=== PATIENT | female | born 2000 | race Caucasian/White ===

== ENCOUNTER 2022-02-08 18:24 | Emergency (ER) | payer MEDICAID ==
[~2022-02-08] VITALS: Ht 170.2 cm; Wt 77.1 kg
[2022-02-08 19:05] VITALS: BP_SYST 107
--- NOTE | 2022-02-08 19:52 | NUR ---
Patient to ER bed H1 to gown for evaluation. Side rails up. Report given to ANNABEL KIRBY.
--- NOTE | 2022-02-08 19:53 | NUR ---
Patient complaining of bilateral flank pain worsening x 2 days. Patient reports has bilateral flank pain for 1 year intermittently. denies any /nausea/vomiting or diarrhea.
--- NOTE | 2022-02-08 19:59 | NUR ---
ER at bedside examining patient.
[2022-02-08] MEDS ORDERED: NACL 0.9% 1,000 ML IV ONE (20:00)
--- NOTE | 2022-02-08 20:08 | NUR ---
patient off unit to ct scan
--- NOTE | 2022-02-08 20:12 | NUR ---
patient returned from ct scan in stable condition
--- NOTE | 2022-02-08 20:15 | NUR ---
# 20 gauge angiocath placed to LAC. Use of asceptic technique. Opsite placed over site. Blood return noted. Flushed with 10 cc of normal saline. No evidence of infiltration noted. Patient tolerated well.
[2022-02-08 20:19] LABS: BILIRUBIN,URINE NEGATIVE (NEGATIVE); BLOOD, URINE NEGATIVE (NEGATIVE); CLARITY/URINE CLEAR (CLEAR); COLOR,URINE YELLOW (YELLOW); GLUCOSE,URINE NEGATIVE (NEGATIVE); KETONES,URINE NEGATIVE (NEGATIVE); LEUKOCYTE ESTERASE ,URINE NEGATIVE (NEGATIVE); NITRITE, URINE NEGATIVE (NEGATIVE); PROTEIN URINE NEGATIVE (NEGATIVE); UROBILINOGEN,URINE 0.2 (0.2-1.0)
[2022-02-08] MEDS ORDERED: ONDANSETRON HCL 4 MG/2 ML VIAL IVP ONE (20:45)
[2022-02-08] MEDS ORDERED: ACETAMINOPHEN 500 MG TABLET PO ONE (20:45)
[2022-02-08 20:48] LABS: HEMOGLOBIN 13.6 g/dL (12.0-16.0); MEAN CORPUSCULAR VOLUME 90 fL (79.0-98.0); WHITE BLOOD COUNT (AUTO) 6.2 K/uL (4.5-11.0)
[2022-02-08 20:53] LABS: BASOPHILS % (AUTO) 0.5 % (0.0-2.0); EOSINOPHILS # (AUTO) 0.1 K/uL (0.0-0.4); EOSINOPHILS % (AUTO) 1.2 % (0.0-4.0); HEMATOCRIT 39.6 % (36-48); LYMPHOCYTES # (AUTO) 2.6 K/uL (1.0-5.5); LYMPHOCYTES % (AUTO) 41.5 % (20.5-51.5); MEAN CORPUSCULAR HEMOGLOBIN 31 pg (27-31); MEAN CORPUSCULAR HGB CONC 34 % (32-36); MONOCYTES # (AUTO) 0.6 K/uL (0.0-1.0); MONOCYTES % (AUTO) 10.4 % (1.7-9.3); NEUTROPHILS # (AUTO) 2.9 K/uL (1.8-7.7); NEUTROPHILS % (AUTO) 46.4 % (40.0-70.0); PLATELET COUNT (AUTO) 232 K/uL (130-430); RED CELL DISTRIBUTION WIDTH 13.4 % (9.0-15.0)
[2022-02-08 20:58] LABS: CALCIUM 9.2 mg/dL (8.4-11.0); CREATININE 0.93 mg/dL (0.55-1.30)
[2022-02-08 21:04] LABS: ALBUMIN 3.9 g/dL (3.4-4.8); TOTAL BILIRUBIN 0.2 mg/dL (0.0-1.0)
--- NOTE | 2022-02-08 21:49 | NUR ---
md at bedside discussing results
[2022-02-08 21:54] VITALS: BP_SYST 118
--- NOTE | 2022-02-08 21:54 | NUR ---
Patient given written and verbal discharge instructions and verbalizes understanding. ER MD discussed with patient the results and treatment provided. Patient in stable condition. ID arm band removed. IV catheter removed intact and dressing applied, no active bleeding. Patient educated on pain management and to follow up with PMD. Pain Scale 0/10 Opportunity for questions provided and answered. Medication side effect fact sheet provided.
== END 2022-02-08 21:54 | disposition home or self-care (01) ==
LOC: SED 18:24
DX: D17.71 Benign lipomatous neoplasm of kidney (principal); R10.9 Unspecified abdominal pain; Z88.6 Allergy status to analgesic agent; Z79.899 Other long term (current) drug therapy
CPT/HCPCS: 99284; 74176; 96374; 96361; 80053; 85025; 36415; 76376; 81025; 81003; J2405; J7030

== ENCOUNTER 2022-02-19 22:19 | Emergency (ER) | payer MEDICAID ==
[~2022-02-19] VITALS: Ht 170.2 cm; Wt 77.1 kg
[2022-02-19 22:33] VITALS: BP_SYST 141
--- NOTE | 2022-02-19 23:47 | NUR ---
Patient ambulatory to bed 8 for evaluation and treatment
[2022-02-20] MEDS ORDERED: ACETAMINOPHEN 325 MG TABLET PO ONE (00:15)
[2022-02-20 00:37] LABS: BILIRUBIN,URINE NEGATIVE (NEGATIVE); BLOOD, URINE NEGATIVE (NEGATIVE); CLARITY/URINE CLEAR (CLEAR); COLOR,URINE ORANGE (YELLOW); GLUCOSE,URINE NEGATIVE (NEGATIVE); KETONES,URINE NEGATIVE (NEGATIVE); LEUKOCYTE ESTERASE ,URINE 1+ (NEGATIVE); NITRITE, URINE NEGATIVE (NEGATIVE); PH,URINE 5.5 (5.0-8.0); PROTEIN URINE NEGATIVE (NEGATIVE); UROBILINOGEN,URINE 0.2 (0.2-1.0)
[2022-02-20 01:31] LABS: BASOPHILS % (AUTO) 0.5 % (0.0-2.0); EOSINOPHILS # (AUTO) 0.1 K/uL (0.0-0.4); EOSINOPHILS % (AUTO) 1.1 % (0.0-4.0); HEMATOCRIT 38.4 % (36-48); LYMPHOCYTES # (AUTO) 3.1 K/uL (1.0-5.5); LYMPHOCYTES % (AUTO) 39.5 % (20.5-51.5); MEAN CORPUSCULAR HEMOGLOBIN 31 pg (27-31); MEAN CORPUSCULAR HGB CONC 34 % (32-36); MEAN CORPUSCULAR VOLUME 91 fL (79.0-98.0); MONOCYTES % (AUTO) 12.6 % (1.7-9.3); NEUTROPHILS # (AUTO) 3.6 K/uL (1.8-7.7); NEUTROPHILS % (AUTO) 46.3 % (40.0-70.0); PLATELET COUNT (AUTO) 257 K/uL (130-430); RED BLOOD CELL COUNT(AUTO) 4.23 MIL/uL (4.2-6.2); RED CELL DISTRIBUTION WIDTH 13.5 % (9.0-15.0); WHITE BLOOD COUNT (AUTO) 7.8 K/uL (4.5-11.0)
[2022-02-20 01:45] LABS: CALCIUM 8.8 mg/dL (8.4-11.0); TOTAL BILIRUBIN 0.2 mg/dL (0.0-1.0)
[2022-02-20 01:46] LABS: ALBUMIN 3.5 g/dL (3.4-4.8); CREATININE 0.88 mg/dL (0.55-1.30)
[2022-02-20 02:24] LABS: BACTERIA,URINE FEW /HPF (None Seen)
[2022-02-20 02:25] LABS: MUCUS,URINE 1+ /LPF (None Seen)
[2022-02-20] MEDS ORDERED: CEPH-548 PO (02:27)
[2022-02-20 02:31] VITALS: BP_SYST 126
== END 2022-02-20 02:32 | disposition home or self-care (01) ==
LOC: SED 22:19
DX: N30.00 Acute cystitis without hematuria (principal); R10.2 Pelvic and perineal pain; Z88.6 Allergy status to analgesic agent; Z79.899 Other long term (current) drug therapy
CPT/HCPCS: 36415; 80053; 81000; 81025; 83690; 85025; 87086; 99283

== ENCOUNTER 2023-02-03 19:37 | Emergency (ER) | payer MEDICAID ==
[~2023-02-03] VITALS: Ht 165.1 cm; Wt 77.1 kg
[~2023-02-03 19:37] MED LIST: BENZ100C92 PO; CEPH-548 PO; ONDA-8 TL; OSEL75CA PO
[2023-02-03 19:45] VITALS: BP_SYST 121; PULSE 90; RESP 16; TEMP 97.9; O2SAT 99
[2023-02-03] MEDS ORDERED: NACL 0.9% 1,000 ML IV ONE (20:45)
[2023-02-03 21:44] LABS: BASOPHILS % (AUTO) 0.4 % (0.0-2.0); EOSINOPHILS # (AUTO) 0.1 K/uL (0.0-0.4); EOSINOPHILS % (AUTO) 1.4 % (0.0-4.0); HEMOGLOBIN 14.5 g/dL (12.0-16.0); LYMPHOCYTES # (AUTO) 2.4 K/uL (1.0-5.5); LYMPHOCYTES % (AUTO) 31.8 % (20.5-51.5); MEAN CORPUSCULAR HEMOGLOBIN 31 pg (27-31); MEAN CORPUSCULAR HGB CONC 34 % (32-36); MEAN CORPUSCULAR VOLUME 91 fL (79.0-98.0); MONOCYTES # (AUTO) 0.9 K/uL (0.0-1.0); MONOCYTES % (AUTO) 12.5 % (1.7-9.3); NEUTROPHILS # (AUTO) 4.1 K/uL (1.8-7.7); NEUTROPHILS % (AUTO) 53.9 % (40.0-70.0); PLATELET COUNT (AUTO) 298 K/uL (130-430); RED BLOOD CELL COUNT(AUTO) 4.73 MIL/uL (4.2-6.2); RED CELL DISTRIBUTION WIDTH 13.4 % (9.0-15.0); WHITE BLOOD COUNT (AUTO) 7.5 K/uL (4.8-10.8)
[2023-02-03 21:47] LABS: ACETONE, SERUM NEGATIVE (NEGATIVE)
[2023-02-03 21:50] LABS: ERYTHROCYTE SEDIMENTATION RATE 13 MM/HR (0-20)
[2023-02-03 21:55] LABS: ANION GAP 7 (5-15); CALCIUM 9.3 mg/dL (8.4-11.0); CARBON DIOXIDE 30 mmol/L (23-29); CHLORIDE 98 mmol/L (98-107); CREATININE 0.87 mg/dL (0.55-1.30); GFR AFRICAN AMERICAN 106 mL/min (>90); GLUCOSE 96 mg/dL (74-106); POTASSIUM 3.7 mmol/L (3.5-5.1); SODIUM SERUM 135 mmol/L (136-145); UREA NITROGEN, BLOOD 8 mg/dL (8-21)
[2023-02-03 21:56] LABS: GFR NON AFRICAN-AMERICAN 87 mL/min (>90)
[2023-02-03] MEDS ORDERED: ACETAMINOPHEN 500 MG TABLET PO ONE (22:00)
[2023-02-03 22:01] LABS: ALANINE AMINOTRANSFERASE 19 U/L (12-78); ALBUMIN 3.6 g/dL (3.4-4.8); ASPARTATE AMINOTRANSFERASE 15 U/L (10-37); CREATINE KINASE, TOTAL 149 U/L (26-192); TOTAL BILIRUBIN 0.4 mg/dL (0.0-1.0)
[2023-02-03 22:29] LABS: BILIRUBIN,URINE NEGATIVE (NEGATIVE); BLOOD, URINE 2+ (NEGATIVE); CLARITY/URINE SL CLOUDY (CLEAR); COLOR,URINE YELLOW (YELLOW); GLUCOSE,URINE NEGATIVE (NEGATIVE); KETONES,URINE NEGATIVE (NEGATIVE); LEUKOCYTE ESTERASE ,URINE NEGATIVE (NEGATIVE); NITRITE, URINE NEGATIVE (NEGATIVE); PROTEIN URINE NEGATIVE (NEGATIVE); UROBILINOGEN,URINE 0.2 (0.2-1.0)
[2023-02-03 23:00] LABS: BACTERIA,URINE MODERATE /HPF (None Seen)
[2023-02-03 23:01] LABS: MUCUS,URINE 2+ /LPF (None Seen)
== END 2023-02-04 02:15 | disposition home or self-care (01) ==
LOC: SED 19:37
DX: R51.9 Headache, unspecified (principal); R53.1 Weakness; R11.0 Nausea; Z86.11 Personal history of tuberculosis; Z88.6 Allergy status to analgesic agent; Z79.899 Other long term (current) drug therapy
CPT/HCPCS: 99283; 96360; 80053; 81001; 82009; 82550; 85025; 85651; 36415; 83605; 82397; 81000; 81015; J7030

== ENCOUNTER 2023-09-26 22:42 | Emergency (ER) | payer MEDICAID ==
[~2023-09-26] VITALS: Ht 170.2 cm; Wt 99.8 kg
[2023-09-26 23:15] VITALS: BP_SYST 116; PULSE 80; RESP 18; TEMP 98.3; O2SAT 98
[2023-09-26 23:42] LABS: BILIRUBIN,URINE NEGATIVE (NEGATIVE); BLOOD, URINE NEGATIVE (NEGATIVE); CLARITY/URINE CLEAR (CLEAR); COLOR,URINE YELLOW (YELLOW); GLUCOSE,URINE NEGATIVE (NEGATIVE); KETONES,URINE NEGATIVE (NEGATIVE); LEUKOCYTE ESTERASE ,URINE NEGATIVE (NEGATIVE); NITRITE, URINE NEGATIVE (NEGATIVE); PROTEIN URINE NEGATIVE (NEGATIVE); UROBILINOGEN,URINE 0.2 (0.2-1.0)
[2023-09-27 01:31] VITALS: BP_SYST 120; PULSE 75; RESP 20; TEMP 97.8; O2SAT 98
== END 2023-09-27 01:31 | disposition home or self-care (01) ==
LOC: SED 22:42
DX: B34.9 Viral infection, unspecified (principal); N92.6 Irregular menstruation, unspecified; Z88.6 Allergy status to analgesic agent; Z88.5 Allergy status to narcotic agent; Z79.899 Other long term (current) drug therapy; Z79.2 Long term (current) use of antibiotics
CPT/HCPCS: 71045; 81001; 81003; 81025; 99284